=== PATIENT | female | born 1950 ===

== ENCOUNTER → 2017-04-09 | Outpatient (CLI) | payer OTHER ==
[2017-04-09 09:39] LABS: BLOOD UREA NITROGEN 18 mg/dL (7-22); CALCIUM 9.1 mg/dL (8.7-10.7); EST GLOMERULAR FILTRATION > 60 (>60 ml/min/1.73m(2)); SERUM ALBUMIN 4.4 g/dL (3.5-4.8)
[2017-04-09 09:40] LABS: CHOL/HDL RATIO 2.28 RATIO (0-4.0); HDL CHOLESTEROL 70 mg/dL (40-150); SERUM CHOLESTEROL 160 mg/dL (120-200)
[2017-04-09 09:57] LABS: BASOPHILS % (AUTO) 1.9 % (0-1); EOSINOPHILS # (AUTO) 0.15 10*3/UL; EOSINOPHILS % (AUTO) 2.9 % (0-8); HEMATOCRIT 43.5 % (37.0-47.0); LYMPHOCYTES # (AUTO) 1.57 10*3/uL; MEAN CORPUSCULAR HGB CONC 32.2 g/dL (33-37); MEAN CORPUSCULAR VOLUME 96.5 FL (81-99); MEAN PLATELET VOLUME 10.2 FL (7.4-12.2); MONOCYTES # (AUTO) 0.47 10*3/UL (0.3-0.8); MONOCYTES % (AUTO) 9.1 % (5-15); NEUTROPHILS # (AUTO) 2.84 10*3/UL; NEUTROPHILS % (AUTO) 55.4 % (50-80); RED BLOOD COUNT 4.51 10^6/uL (4.20-5.40)
[2017-04-09 09:59] LABS: PLATELET MORPHOLOGY COMMENT NORMAL MORPHOLOGY (NORM); RBC MORPHOLOGY COMMENT NORMAL MORPHOLOGY (NORM); WBC MORPHOLOGY COMMENT NORMAL MORPHOLOGY (NORM)
== END ==
LOC: LAB 08:59
PROVIDERS: ATTEND Family Medicine
DX: E78.2 Mixed hyperlipidemia (principal); Z79.899 Other long term (current) drug therapy
CPT/HCPCS: 36415; 80053; 80061; 82306; 85025